=== PATIENT | female | born 1975 | race Caucasian/White ===

== ENCOUNTER → 2016-12-24 | Outpatient (CLI) | payer OTHER ==
--- NOTE | 2016-12-24 13:57 | MAM ---
History: Well woman exam. Date of exam: 12/24/2016 Services provided: Bilateral full field digital screening mammography. CAD, the images were reviewed with R2 computer aided detection. FINDINGS: Glandular tissue is scattered glandular pattern. Comparison with 2014 exam. No dominant mass, architectural distortion or clustered microcalcification. IMPRESSION: Benign exam Recommendation: Routine annual mammography BIRAD CATEGORY: 2 BENIGN Electronically signed by: Mayra Izaguirre MD 12/24/2016 1:56 PM CDT
== END | disposition home or self-care (01) ==
LOC: MAMMO 14:04
PROVIDERS: ATTEND Family Medicine
DX: Z12.31 Encounter for screening mammogram for malignant neoplasm of breast (principal)

== ENCOUNTER → 2017-09-05 | Outpatient (CLI) | payer OTHER, SELFPAY ==
--- NOTE | 2017-09-08 08:14 | US ---
EXAM DESCRIPTION: Soft Tissue,Head/Neck CLINICAL HISTORY: 41 years Female, CERVICALGIA COMPARISON: None. FINDINGS: The right thyroid lobe measures 4.4 x 1.5 x 1.7 cm diameter. It contains a 9 mm ovoid hypoechoic nodule in its midportion without peripheral hypervascularity or definite internal calcification. The thyroid isthmus is not thickened. The left thyroid lobe measures 4.7 x 2.4 x 2.3 cm. It contains a round 3.1 cm solid nodule in its midportion with an adjacent 1.5 cm solid nodule also noted. Neither nodule demonstrates peripheral hypervascularity or internal calcification. IMPRESSION: Bilateral solid thyroid nodules, the largest in the left side measuring 3.1 cm diameter. Ultrasound-guided biopsy of one or both left thyroid nodule should be considered. Follow-up ultrasound in 6-9 months should also be obtained to document stability of the smaller right thyroid nodule. Electronically signed by: Chato Garcia MD 09/08/2017 8:13 AM [employer]
== END ==
LOC: US 10:00
PROVIDERS: ATTEND Nurse Practitioner Family
DX: M54.2 Cervicalgia (principal); E04.1 Nontoxic single thyroid nodule

== ENCOUNTER → 2020-09-07 | Outpatient (CLI) | payer SELFPAY | LOC: LAB.O 10:54 | PROVIDERS: ATTEND Nurse Practitioner Family | DX: E05.20 Thyrotoxicosis with toxic multinodular goiter without thyrotoxic crisis or storm (principal) ==